=== PATIENT | female | born 1990 | race Caucasian/White ===

== ENCOUNTER 2023-12-15 20:17 | Emergency (ER) | payer SELFPAY ==
[~2023-12-15] VITALS: Ht 165.1 cm; Wt 74.8 kg
[2023-12-15 21:00] LABS: BASO # 0.1 10*3/uL (0.0-0.1); BASO % 1.1 % (0.0-1.0); EOS # 0.3 10*3/uL (0.0-0.4); EOS % 3.1 % (1.0-4.0); HEMATOCRIT 43.2 % (37.0-47.0); LYMPH # 2.5 10*3/uL (1.3-4.4); LYMPH % 25.9 % (27.0-41.0); MEAN CELL VOLUME 97.1 fl (81.0-99.0); MEAN CORPUSCULAR HGB 34.2 pg (27.0-31.0); MEAN CORPUSCULAR HGB CONC 35.2 g/dl (33.0-37.0); MEAN PLATELET VOLUME 10.3 fl (9.6-12.3); MONO % 10.1 % (3.0-9.0); NEUT # 5.7 10*3/uL (2.3-7.9); NEUT % 59.6 % (47.0-73.0); PLATELET COUNT AUTOMATED 226 10*3/uL (130-400); RED BLOOD COUNT 4.45 10*6/uL (4.10-5.10); RED CELL DISTRI WIDTH 13.4 % (0-14.5); WHITE BLOOD COUNT 9.5 10*3/uL (4.8-10.8)
[2023-12-15 21:24] LABS: BILIRUBIN Negative (Negative); BLOOD 2+ (Negative); CLARITY Cloudy (Clear); COLOR Yellow (Yellow); GLUCOSE Negative (Negative); KETONE Trace (Negative); LEUKO ESTERASE 2+ (Negative); NITRITE Positive (Negative)
[2023-12-15 21:36] LABS: BACTERIA 4+; WBC 31-40 wbc/hpf (0-5)
[2023-12-15] MEDS ORDERED: AMOX-CLAV 875-1 EACH PO (21:50)
[2023-12-15] MEDS ORDERED: Amoxicillin/Clavulanate Pota 875 MG TAB PO ONE (21:50)
== END 2023-12-15 22:15 | disposition home or self-care (01) ==
LOC: ED 20:17
PROVIDERS: Physician Assistant Medical
DX: N93.8 Other specified abnormal uterine and vaginal bleeding (principal); N39.0 Urinary tract infection, site not specified; R74.8 Abnormal levels of other serum enzymes; F32.A Depression, unspecified; J45.909 Unspecified asthma, uncomplicated

== ENCOUNTER 2024-03-06 22:10 | Emergency (ER) | payer OTHER ==
[~2024-03-06] VITALS: Ht 167.6 cm; Wt 81.6 kg
[~2024-03-06 22:10] MED LIST: AMOX-CLAV 875-1 EACH PO
[2024-03-07] MEDS ORDERED: CEPHALEXIN500 M1 PO (05:59)
[2024-03-07] MEDS ORDERED: CEPHALEXIN 500 MG CAP PO ONE (06:00)
== END 2024-03-07 06:25 | disposition home or self-care (01) ==
LOC: ED 22:10
DX: S01.111A Laceration without foreign body of right eyelid and periocular area, initial encounter (principal); Y04.8XXA Assault by other bodily force, initial encounter; Y93.89 Activity, other specified; Y92.89 Other specified places as the place of occurrence of the external cause; Y99.8 Other external cause status

== ENCOUNTER 2024-03-14 15:22 | Emergency (ER) | payer OTHER ==
[~2024-03-14] VITALS: Ht 165.1 cm; Wt 83.9 kg
[~2024-03-14 15:22] MED LIST changes: +CEPHALEXIN500 M1 PO
== END 2024-03-14 17:22 | disposition home or self-care (01) ==
LOC: ED 15:22
DX: S01.111D Laceration without foreign body of right eyelid and periocular area, subsequent encounter (principal); J45.909 Unspecified asthma, uncomplicated; X58.XXXD Exposure to other specified factors, subsequent encounter